=== PATIENT | female | born 1965 | race Caucasian/White ===

== ENCOUNTER 2018-11-01 21:17 | Emergency (ER) | payer OTHER ==
[~2018-11-01] VITALS: Ht 162.6 cm; Wt 59.3 kg
[2018-11-01 21:30] VITALS: Ht 162.6 cm; Wt 59.3 kg
--- NOTE | 2018-11-01 22:45 | ERD ---
ER Documentation Chief Complaint Chief Complaint rashes all over the body started today; itchy; afebrile; r/o scabies HPI 53-year-old female, presents to the emergency department, complaining of acute onset this morning of generalized, erythematous rash after finishing 5 days of amoxicillin. The rash spares the face and is mildly pruritic. The patient denies fever, no chills, no abdominal pain, no previous history of allergies. ROS All systems reviewed and are negative except as per history of present illness. Medications Home Meds Active Scripts Diphenhydramine Hcl* (Benadryl*) 25 Mg Cap, 25 MG PO Q6 PRN for ITCHING/RASH, #30 TAB Prov:JABARI DE GUZMAN MD 11/01/18 Prednisone* (Prednisone*) 20 Mg Tab, 40 MG PO DAILY for 4 Days, TAB Prov:JABARI DE GUZMAN MD 11/01/18 Allergies Allergies: Coded Allergies: amoxicillin (Verified Allergy, Severe, rashes all over body and parts, 11/01/18) PMhx/Soc Medical and Surgical Hx: pt denies Medical Hx, pt denies Surgical Hx Hx Alcohol Use: No Hx Substance Use: No Hx Tobacco Use: No Smoking Status: Never smoker FmHx Family History: No diabetes, No coronary disease Physical Exam Vitals Vital Signs Date Temp Pulse Resp B/P (MAP) Pulse Ox O2 O2 Flow FiO2 Time Delivery Rate 11/01/18 98.3 70 18 148/63 98 21:30 (91) Physical Exam Const: No acute distress Head: Atraumatic Eyes: Normal Conjunctiva ENT: Normal External Ears, Nose and Mouth. Neck: Full range of motion. No meningismus. Resp: Clear to auscultation bilaterally Cardio: Regular rate and rhythm, no murmurs Abd: Soft, non tender, non distended. Normal bowel sounds Skin: Generalized maculopapular, erythematous rash, homogeneous, that bleaches to palpation. Back: No midline or flank tenderness Ext: No cyanosis, or edema Neur: Awake and alert Psych: Normal Mood and Affect Results 24 hrs Current Medications Medications Dose Sig/Marilee Start Time Status Last (Trade) Ordered Route PRN Stop Time Admin Dose Reason Admin 8 mg ONCE ONCE 11/01/18 DC 11/01/18 Dexamethasone PO 23:00 23:02 (Decadron) 11/01/18 23:01 50 mg ONCE ONCE 11/01/18 DC 11/01/18 Diphenhydrami PO 23:00 22:51 ne HCl 11/01/18 23:01 (Benadryl) Procedures/MDM Differential diagnosis include but not limited to: Acute allergic reaction, shingles, scabies, autoimmune dermatitis, medication side effect, low suspicion for angioedema, anaphylactic shock, Mcnair-Ramin syndrome. Physical examination and clinical presentation consistent most likely with acute allergic reaction to amoxicillin During the ED course the patient remained hemodynamically stable stable, no new complaints. The patient received treatment with p.o. steroids and p.o. Benadryl presenting overall improvement of the symptoms. Results and clinical impression discussed with patient whom agrees with management. The patient is stable to be treated outpatient and will be discharged home with a Rx for prednisone and Benadryl, some side effects of prescribed medications (headache, rash, nausea, vomiting, diarrhea, drowsiness, habituation, bleeding, hypertension, interactions with other medications) were reviewed. The patient was instructed to follow up with the primary care provider in the next 48h. If symptoms persist, worsen or new symptoms develop, then patient should return to the ED immediately. Instructions explained and given directly by me with acknowledgment and demonstrated understanding. Disclaimer: Inadvertent spelling and grammatical errors are likely due to EHR/dictation software use and do not reflect on the overall quality of patient care. Also, please note that the electronic time recorded on this note does not necessarily reflect the actual time of the patient encounter. Departure Diagnosis: Primary Impression: Amoxicillin-induced allergic rash Condition: Stable Additional Instructions: Thank you very much for allowing us to participate in your care. Your health and safety is our top priority at [facility] [place]. The evaluation in the emergency department has been done to rule out an acute emergency, therefore, chronic conditions like malignancy or other diseases have not been evaluated; therefore, you need to follow up with a primary care provider in the next 48h. If symptoms persist, worsen or new symptoms develop, then patient should return to the ED immediately. Call your primary care doctor TOMORROW for an appointment during the next 2-4 days and bring all the information provided. Have prescriptions filled and follow precisely the directions on the label. If the symptoms get worse and your provider is unavailable, return to the Emergency Department immediately. LANE-GUIDRY,JABARI MD Nov 01, 2018 22:45
[2018-11-01] MEDS ORDERED: DIPHENHYDRAMINE 50 MG CAP PO ONE (23:00)
[2018-11-01] MEDS ORDERED: DEXAMETHASONE 4 MG TAB PO ONE (23:00)
[2018-11-01] MEDS ORDERED: PRED20TA PO (23:25)
[2018-11-01] MEDS ORDERED: BEN25 PO (23:25)
== END 2018-11-01 23:33 | disposition home or self-care (01) ==
LOC: FTE 21:17
DX: R21 Rash and other nonspecific skin eruption (principal)
CPT/HCPCS: Z7610 ×2; 99283